=== PATIENT | female | born 1970 | race Caucasian/White ===

== ENCOUNTER 2020-08-01 11:23 | Emergency (ER) | payer OTHER, SELFPAY ==
[2020-08-01] VITALS (7 sets, daily range): BP systolic 99–106; BP diastolic 67–77; PULSE 57–89; RESP 16–43; TEMP 36.2; O2SAT 96–99
--- NOTE | 2020-08-01 11:37 | ED_ITS ---
HPI - General Adult General Chief complaint: Abdominal Pain Stated complaint: shakes/eyes yellow/no balance/swollen abd Time Seen by Provider: 08/01/20 11:36 Source: patient Mode of arrival: Ambulatory Limitations: no limitations History of Present Illness HPI narrative: Patient is a 49-year-old female. Has a history of high blood pressure. Is on atenolol for this. Also has had a fairly significant alcohol history. She states she has been weaning herself off of alcohol for the past several weeks. Her last drink was yesterday where she took ?1 shot ?because she was having shaking. She states that approximately 6 weeks ago when she saw all a new provider she had labs drawn and was told that her liver function tests were elevated. She also was told that her vitamins were low and so a short time afterwards she received an infusion of vitamins. She is unsure as to exactly what was in the infusion. Shortly afterwards she stated that her urine started changing colors. In just a couple days after that started noticing that her eyes and skin were changing a yellow color. She has not had any change in stool habits. Does have some right upper quadrant tenderness. Is afebrile. Has been told that she has had a cyst on her liver. This was on an ultrasound that was [place] many [place]. Related Data Home Medications Medication Instructions Recorded Confirmed atenolol 12.5 mg PO DAILY 08/01/20 08/01/20 Allergies Allergy/AdvReac Type Severity Reaction Status Date / Time lisinopril AdvReac Cough Verified 08/01/20 11:54 Review of Systems Constitutional Constitutional: Denies fever(s) Eyes Comments: Yellow eyes ENT Ears, Nose, Mouth, and Throat: Reports system reviewed and no additional complaints, except as documented Cardiovascular Cardiovascular: Reports system reviewed and no additional complaints, except as documented Respiratory Respiratory: Reports system reviewed and no additional complaints, except as documented Gastrointestinal Gastrointestinal: Reports abdominal pain, Denies nausea and Denies vomiting Genitourinary Comments: Dark colored urine Musculoskeletal Musculoskeletal: Reports system reviewed and no additional complaints, except as documented Integumentary/Breasts Comments: Easy bruising Neurologic Neurologic: Reports system reviewed and no additional complaints, except as documented Psychiatric Psychiatric: Reports system reviewed and no additional complaints, except as documented Hematologic/Lymphatic On Anticoagulants: No Allergic/Immunologic Allergic/Immunologic: Reports system reviewed and no additional complaints, except as documented Patient History Medical History Alcohol abuse Hypertension Social History Smoking Status: Never smoker Exam Initial Vital Signs Initial Vital Signs: Vital Signs Temperature 97.1 F L 08/01/20 11:39 Pulse Rate 84 08/01/20 11:39 Respiratory Rate 17 08/01/20 11:39 Blood Pressure 100/73 08/01/20 11:39 Pulse Oximetry 98 08/01/20 11:39 Const General: cooperative and comfortable Limitations: mental status not altered HENMT Head: normal to inspection and normocephalic Nose: external nose normal Face and sinus: normal facial exam Eyes Sclera: scleral abnormality bilaterally (Jaundice) Pupils: PERRL Resp Effort & Inspection: normal respiratory effort Auscultation: clear to auscultation bilaterally Cardio Rate: regular rate Rhythm: regular rhythm GI Inspection: non-distended Palpation: soft, tender (Right upper quadrant) and No ascites Skin Other: Systemic jaundice and petechiae on lower extremities Neuro General: patient alert, patient awake and patient oriented x3 Cognition: normal cognition Speech: speech normal Extrem General: normal to inspection and capillary refill normal Psych Appearance: disheveled Scores GCS [place] coma scale eye opening: Spontaneous [place] coma scale verbal response: Orientated [place] coma scale motor response: Obey commands [place] coma scale total score: 15 Course Orders Ordered: ED Orders 08/01/20 11:23 Hepatitis Acute Panel Stat 08/01/20 11:41 Acetaminophen Stat Basic Metabolic Panel Stat Complete Blood Count AUTO DIFF Stat Ethanol (ETOH) Stat Hepatic (Liver) Panel Stat Lactate (Lactic Acid) Stat Lipase Stat Partial Thromboplastin Time Stat Prothrombin Time INR Stat 08/01/20 11:49 Ammonia (NH3) Stat 08/01/20 12:09 US abdomen limited Stat 08/01/20 14:05 COVID19 - ADMIT (LEATHER DRIER swab/PCR) Stat 08/01/20 14:43 Urine Drug Screen, Rapid Stat 08/01/20 14:55 Ictotest Urine Stat Urinalysis and Microscopic Stat Urine Culture Stat Vital Signs Vital signs: Vital Signs - 8 hr 08/01/20 11:39 08/01/20 12:15 08/01/20 12:30 Temperature 97.1 F L Pulse Rate 84 89 57 L Respiratory Rate 17 21 43 H Blood Pressure 100/73 Pulse Oximetry 98 99 96 08/01/20 12:31 08/01/20 12:43 08/01/20 14:01 Temperature Pulse Rate 67 66 80 Respiratory Rate 16 18 17 Blood Pressure 99/67 103/71 Pulse Oximetry 98 99 99 08/01/20 15:13 Temperature Pulse Rate 76 Respiratory Rate 17 Blood Pressure 106/77 Pulse Oximetry 99 Medical Decision Making Lab Data Lab results reviewed: Yes I reviewed the patient's lab results. Result diagrams: 08/01/20 11:41 08/01/20 11:41 Labs: Lab Results 08/01/20 08/01/20 08/01/20 Range/Units 11:41 11:41 11:41 WBC 5.7 (4.5-11.0) X10^3/uL RBC 3.45 L (4.0-5.2) X10^6/uL Hgb 13.8 (12.0-16.0) g/dL Hct 40.3 (36-46) % MCV 116.8 H (80-100) fL MCH 40.1 H (26-34) PG MCHC 34.3 (30-36) % RDW 18.1 H (11.6-14.8) % Plt Count 459 H (150-400) X10^3/uL Neut % (Auto) Not Reportable Lymph % (Auto) Not Reportable [place] % (Auto) Not Reportable Eos % (Auto) Not Reportable Baso % (Auto) Not Reportable Lymph # (Auto) Not Reportable [place] # (Auto) Not Reportable Baso # (Auto) Not Reportable Total Counted 100 Seg Neutrophils % 61.0 (38-70) % Band Neutrophils % 7.0 (3-7) % Lymphocytes % (Manual) 19.0 L (25-45) % Atypical Lymphs % 5.0 H ( - 0) % Monocytes % (Manual) 5.0 (2-11) % Eosinophils % (Manual) 3.0 (2-4) % Neutrophils # (Manual) 3876 (8984-8580) /uL RBC Morphology See below Polychromasia 1+ H Macrocytosis 1+ H Stomatocytes 2+ H PT 16.2 H (10.1-12.7) SECONDS INR 1.4 H (0.9-1.3) APTT 29 (26.4-36.2) SECONDS Sodium 138 (137-145) mmol/L Potassium 3.1 L (3.4-5.1) mmol/L Chloride 102 (98-107) mmol/L Carbon Dioxide 25 (22-32) mmol/L BUN 7 (7-17) mg/dL Creatinine 0.53 (0.52-1.04) mg/dL Estimated GFR > 60.0 (>60) mL/min BUN/Creatinine Ratio 13.2 (6-22) Glucose 101 H (70-100) mg/dL Lactate (0.7-2.1) mmol/L Calcium 9.1 (8.4-10.2) mg/dL Total Bilirubin 13.8 H (0.2-1.3) mg/dL Conjugated Bilirubin 6.0 H (0.0-0.3) md/dL Unconjugated Bilirubin 1.8 H (0.0-1.1) mg/dL AST 290 H (14-36) IU/L ALT 91 H (<35) IU/L Alkaline Phosphatase 181 H (38-126) U/L Ammonia (9-30) umol/L Total Protein 7.6 (6.3-8.2) g/dL Albumin 3.6 (3.5-5.0) g/dL Globulin 4.0 (1.7-4.1) g/dL Albumin/Globulin Ratio 0.9 L (1.0-2.8) Lipase 591 H (23-300) U/L Urine Color Urine Appearance Urine pH (4.5-8.0) Ur Specific [place] (1.000-1.035) Urine Protein (Negative) Urine Glucose (UA) (Negative) g/dL Urine Ketones (NEGATIVE) Urine Occult Blood (Negative) Urine Nitrate (Negative) Urine Bilirubin (NEGATIVE) Ur Bilirubin Confirm (Negative) Urine Urobilinogen (0.2) E.U./dL Ur Leukocyte Esterase (NEGATIVE) Urine RBC (0-5/HPF) Urine WBC (0-5/HPF) Ur Squamous Epith Cells (0-5/HPF) Ur Transition Epith Cell (0-5/HPF) Urine Bacteria (None) Hyaline Casts (None) Urine Mucus (Negative) Ur Culture Indicated? U Opiates 300ng/mL cut (Negative) Ur Oxycodone Screen (Negative) Urine Methadone Screen (Negative) Acetaminophen < 10 L (10-30) ug/mL Ur Barbiturates Screen (Negative) U Tricyclic Antidepress (Negative) Ur Phencyclidine Scrn (Negative) Ur Amphetamines Screen (Negative) U Methamphetamines Scrn (Negative) Ur MDMA Scrn (Ecstasy) (Negative) U Benzodiazepines Scrn (Negative) Urine Cocaine Screen (Negative) U Marijuana (THC) Screen (Negative) Ethyl Alcohol < 10 ( - 10) mg/dL SARS-CoV-2 (PCR) (Negative) 08/01/20 08/01/20 08/01/20 Range/Units 11:41 11:49 14:05 WBC (4.5-11.0) X10^3/uL RBC (4.0-5.2) X10^6/uL Hgb (12.0-16.0) g/dL Hct (36-46) % MCV (80-100) fL MCH (26-34) PG MCHC (30-36) % RDW (11.6-14.8) % Plt Count (150-400) X10^3/uL Neut % (Auto) Lymph % (Auto) [place] % (Auto) Eos % (Auto) Baso % (Auto) Lymph # (Auto) [place] # (Auto) Baso # (Auto) Total Counted Seg Neutrophils % (38-70) % Band Neutrophils % (3-7) % Lymphocytes % (Manual) (25-45) % Atypical Lymphs % ( - 0) % Monocytes % (Manual) (2-11) % Eosinophils % (Manual) (2-4) % Neutrophils # (Manual) (2528-6821) /uL RBC Morphology Polychromasia Macrocytosis Stomatocytes PT (10.1-12.7) SECONDS INR (0.9-1.3) APTT (26.4-36.2) SECONDS Sodium (137-145) mmol/L Potassium (3.4-5.1) mmol/L Chloride (98-107) mmol/L Carbon Dioxide (22-32) mmol/L BUN (7-17) mg/dL Creatinine (0.52-1.04) mg/dL Estimated GFR (>60) mL/min BUN/Creatinine Ratio (6-22) Glucose (70-100) mg/dL Lactate 1.7 (0.7-2.1) mmol/L Calcium (8.4-10.2) mg/dL Total Bilirubin (0.2-1.3) mg/dL Conjugated Bilirubin (0.0-0.3) md/dL Unconjugated Bilirubin (0.0-1.1) mg/dL AST (14-36) IU/L ALT (<35) IU/L Alkaline Phosphatase (38-126) U/L Ammonia < 9 L (9-30) umol/L Total Protein (6.3-8.2) g/dL Albumin (3.5-5.0) g/dL Globulin (1.7-4.1) g/dL Albumin/Globulin Ratio (1.0-2.8) Lipase (23-300) U/L Urine Color Urine Appearance Urine pH (4.5-8.0) Ur Specific [place] (1.000-1.035) Urine Protein (Negative) Urine Glucose (UA) (Negative) g/dL Urine Ketones (NEGATIVE) Urine Occult Blood (Negative) Urine Nitrate (Negative) Urine Bilirubin (NEGATIVE) Ur Bilirubin Confirm (Negative) Urine Urobilinogen (0.2) E.U./dL Ur Leukocyte Esterase (NEGATIVE) Urine RBC (0-5/HPF) Urine WBC (0-5/HPF) Ur Squamous Epith Cells (0-5/HPF) Ur Transition Epith Cell (0-5/HPF) Urine Bacteria (None) Hyaline Casts (None) Urine Mucus (Negative) Ur Culture Indicated? U Opiates 300ng/mL cut (Negative) Ur Oxycodone Screen (Negative) Urine Methadone Screen (Negative) Acetaminophen (10-30) ug/mL Ur Barbiturates Screen (Negative) U Tricyclic Antidepress (Negative) Ur Phencyclidine Scrn (Negative) Ur Amphetamines Screen (Negative) U Methamphetamines Scrn (Negative) Ur MDMA Scrn (Ecstasy) (Negative) U Benzodiazepines Scrn (Negative) Urine Cocaine Screen (Negative) U Marijuana (THC) Screen (Negative) Ethyl Alcohol ( - 10) mg/dL SARS-CoV-2 (PCR) Negative (Negative) 08/01/20 08/01/20 Range/Units 14:43 14:55 WBC (4.5-11.0) X10^3/uL RBC (4.0-5.2) X10^6/uL Hgb (12.0-16.0) g/dL Hct (36-46) % MCV (80-100) fL MCH (26-34) PG MCHC (30-36) % RDW (11.6-14.8) % Plt Count (150-400) X10^3/uL Neut % (Auto) Lymph % (Auto) [place] % (Auto) Eos % (Auto) Baso % (Auto) Lymph # (Auto) [place] # (Auto) Baso # (Auto) Total Counted Seg Neutrophils % (38-70) % Band Neutrophils % (3-7) % Lymphocytes % (Manual) (25-45) % Atypical Lymphs % ( - 0) % Monocytes % (Manual) (2-11) % Eosinophils % (Manual) (2-4) % Neutrophils # (Manual) (2750-1706) /uL RBC Morphology Polychromasia Macrocytosis Stomatocytes PT (10.1-12.7) SECONDS INR (0.9-1.3) APTT (26.4-36.2) SECONDS Sodium (137-145) mmol/L Potassium (3.4-5.1) mmol/L Chloride (98-107) mmol/L Carbon Dioxide (22-32) mmol/L BUN (7-17) mg/dL Creatinine (0.52-1.04) mg/dL Estimated GFR (>60) mL/min BUN/Creatinine Ratio (6-22) Glucose (70-100) mg/dL Lactate (0.7-2.1) mmol/L Calcium (8.4-10.2) mg/dL Total Bilirubin (0.2-1.3) mg/dL Conjugated Bilirubin (0.0-0.3) md/dL Unconjugated Bilirubin (0.0-1.1) mg/dL AST (14-36) IU/L ALT (<35) IU/L Alkaline Phosphatase (38-126) U/L Ammonia (9-30) umol/L Total Protein (6.3-8.2) g/dL Albumin (3.5-5.0) g/dL Globulin (1.7-4.1) g/dL Albumin/Globulin Ratio (1.0-2.8) Lipase (23-300) U/L Urine Color Brown Urine Appearance Cloudy Urine pH 6.5 (4.5-8.0) Ur Specific [place] 1.025 (1.000-1.035) Urine Protein 2+ H (Negative) Urine Glucose (UA) Trace H (Negative) g/dL Urine Ketones Trace H (NEGATIVE) Urine Occult Blood Trace-lysed (Negative) Urine Nitrate Positive H (Negative) Urine Bilirubin 3+ H (NEGATIVE) Ur Bilirubin Confirm Positive H (Negative) Urine Urobilinogen 2.0 H (0.2) E.U./dL Ur Leukocyte Esterase Trace H (NEGATIVE) Urine RBC 0-1/hpf (0-5/HPF) Urine WBC 5-10/hpf H (0-5/HPF) Ur Squamous Epith Cells 1-5 /hpf (0-5/HPF) Ur Transition Epith Cell 5-10/hpf H (0-5/HPF) Urine Bacteria Few (2-10) H (None) Hyaline Casts 5-10/lpf (None) Urine Mucus 2+ H (Negative) Ur Culture Indicated? Specimen cultured U Opiates 300ng/mL cut Negative (Negative) Ur Oxycodone Screen Negative (Negative) Urine Methadone Screen Negative (Negative) Acetaminophen (10-30) ug/mL Ur Barbiturates Screen Negative (Negative) U Tricyclic Antidepress Positive H (Negative) Ur Phencyclidine Scrn Negative (Negative) Ur Amphetamines Screen Negative (Negative) U Methamphetamines Scrn Negative (Negative) Ur MDMA Scrn (Ecstasy) Negative (Negative) U Benzodiazepines Scrn Negative (Negative) Urine Cocaine Screen Negative (Negative) U Marijuana (THC) Screen Negative (Negative) Ethyl Alcohol ( - 10) mg/dL SARS-CoV-2 (PCR) (Negative) Imaging Data US - abdomen: Radiologist's Impression: [address] [id number] ReportSigned Patient: Madison Torres LMR#: [id number]: [id number]:[id number]/Sex: 49 / FDate of Service: 08/01/20Loc: EDAccession Number: [id number] Procedure: US abdomen limited Ordering Provider: Jamarcus Villegas D.O. PROCEDURE: US ABDOMEN LIMITED INDICATIONS: LIVER FAILURE TECHNIQUE: Real-time scanning was performed of the abdominal and retroperitoneal organs, with image documentation. COMPARISON: None. FINDINGS: Liver: The liver demonstrates diffusely increased echotexture without focal abnormalities consistent with chronic hepatocellular disease/hepatic steatosis. Liver appears enlarged with the lateral segment of the left hepatic lobe extending into the left upper quadrant. Multiple anechoic liver cysts are seen. Largest on the left measures 0.6 x 0.6 x 0.5 cm. Largest on the right measures 1.0 x 1.1 x 1.2 cm. The right hepatic lobe also appears prominent in size. Gallbladder: Hydropic gallbladder without wall thickening gallstones or pericholecystic fluid. Gallbladder measures 14.1 x 6.8 x 4.9 cm. Biliary ducts: Intrahepatic bile ducts are non-dilated. Extrahepatic bile duct caliber is not well visualized. Pancreas: Pancreas is not well visualized. Miscellaneous: No free abdominal fluid. IMPRESSION: 1. Hydropic gallbladder without wall thickening or gallstones. 2. Hepatomegaly with findings compatible with hepatic steatosis. 3. Multiple bilateral hepatic cysts. Dictated by: David Lynn M.D. on 08/01/2020 at 13:05 Approved by: David Lynn M.D. on 08/01/2020 at 13:18 MDM Narrative Medical decision making narrative: Patient was alert oriented x3. Did not have any indication of alcohol withdrawal. Has had 2 weeks of presenting symptoms. Overall she states she does feel well however is having some lower extremity weakness. Has an elevated bilirubin and elevated LFTs. This is most likely related to her alcohol intake. Right upper quadrant ultrasound is consistent wi th this. I have low suspicion for gallbladder etiology. She has not had pancreatitis. Her hepatitis panel was pending at the time of discharge. I discussed the case with Internal Medicine at [facility] who stated that she did not think that the patient would require a GI referral and that this most likely is a alcoholic hepatitis. I did discuss the case with Dr. Worthy with Internal Medicine at our facility who stated that since the patient feels well and her vital signs were unremarkable in that she does have a primary doctor that the patient could be discharged home with follow-up with her primary doctor with referral to see Gastroenterology. She was given the phone number f or a GI provider. She was given strict return precautions. Both her and her expressed understanding agreement. We did discuss her alcohol use in the portions of quitting and the concern for alcohol withdrawal. Discharge Plan Departure Patient Disposition: Home Clinical Impression: Alcoholic hepatitis, Hyperbilirubinemia, Jaundice Instructions: Alcoholic Hepatitis (Alternative Therapy) Activity Restrictions/Additional Instructions: Like we discussed you do need to avoid alcohol. I recommend that you contact your primary doctor as you will need to see a liver specialist. You can contact the number below of the GI specialist that is affiliated with this hospital. Return to the emergency department for any new or worsening symptoms Prescriptions: No Action atenolol 25 mg Tablet 12.5 mg PO DAILY RF: 0 Referrals: Frank Padilla MD [Primary Care Provider] - Davis Nixon MD [Physician] -
[2020-08-01 11:52] LABS: Hematocrit 40.3 % (36-46); Hemoglobin 13.8 g/dL (12.0-16.0); Mean Corpuscular HGB Conc 34.3 % (30-36); Mean Corpuscular Hemoglobin 40.1 PG (26-34); Mean Corpuscular Volume 116.8 fL (80-100); Platelet Count 459 X10^3/uL (150-400); Red Blood Cell Count 3.45 X10^6/uL (4.0-5.2); Red Cell Distribution Width 18.1 % (11.6-14.8); White Blood Cell Count 5.7 X10^3/uL (4.5-11.0)
[2020-08-01 11:53] LABS: Add Manual Diff / Slide Review YES
[2020-08-01 11:55] LABS: INR 1.4 (0.9-1.3); Prothrombin Time 16.2 SECONDS (10.1-12.7)
[2020-08-01 11:58] LABS: Lactate (Lactic Acid) 1.7 mmol/L (0.7-2.1); PTT Partial Thromboplastin Tim 29 SECONDS (26.4-36.2)
[2020-08-01 12:00] LABS: Acetaminophen < 10 ug/mL (10-30); Alanine Aminotransferase 91 IU/L (<35); Albumin 3.6 g/dL (3.5-5.0); Albumin Globulin Ratio 0.9 (1.0-2.8); Alkaline Phosphatase 181 U/L (38-126); Aspartate Aminotransferase 290 IU/L (14-36); BUN Creatinine Ratio 13.2 (6-22); Bilirubin Total 13.8 mg/dL (0.2-1.3); Bilirubin Unconjugated 1.8 mg/dL (0.0-1.1); Blood Urea Nitrogen 7 mg/dL (7-17); Calcium 9.1 mg/dL (8.4-10.2); Carbon Dioxide 25 mmol/L (22-32); Chloride 102 mmol/L (98-107); Estimated Glomerular Filt Rate > 60.0 mL/min (>60); Ethanol (ETOH) < 10 mg/dL; Glucose 101 mg/dL (70-100); HEMOLYSIS < 15 (0-50); Lipase 591 U/L (23-300); Potassium 3.1 mmol/L (3.4-5.1); Sodium 138 mmol/L (137-145); Total Protein 7.6 g/dL (6.3-8.2)
[2020-08-01 12:06] LABS: Ammonia (NH3) < 9 umol/L (9-30)
--- NOTE | 2020-08-01 12:09 | DI.US.S_ITS ---
PROCEDURE: US ABDOMEN LIMITED INDICATIONS: LIVER FAILURE TECHNIQUE: Real-time scanning was performed of the abdominal and retroperitoneal organs, with image documentation. COMPARISON: None. FINDINGS: Liver: The liver demonstrates diffusely increased echotexture without focal abnormalities consistent with chronic hepatocellular disease/hepatic steatosis. Liver appears enlarged with the lateral segment of the left hepatic lobe extending into the left upper quadrant. Multiple anechoic liver cysts are seen. Largest on the left measures 0.6 x 0.6 x 0.5 cm. Largest on the right measures 1.0 x 1.1 x 1.2 cm. The right hepatic lobe also appears prominent in size. Gallbladder: Hydropic gallbladder without wall thickening gallstones or pericholecystic fluid. Gallbladder measures 14.1 x 6.8 x 4.9 cm. Biliary ducts: Intrahepatic bile ducts are non-dilated. Extrahepatic bile duct caliber is not well visualized. Pancreas: Pancreas is not well visualized. Miscellaneous: No free abdominal fluid. IMPRESSION: 1. Hydropic gallbladder without wall thickening or gallstones. 2. Hepatomegaly with findings compatible with hepatic steatosis. 3. Multiple bilateral hepatic cysts. Dictated by: David Lynn M.D. on 08/01/2020 at 13:05 Approved by: David Lynn M.D. on 08/01/2020 at 13:18
[2020-08-01 12:27] LABS: Neutrophils Absolute Manual 3876 /uL (3000-5900); Total Cells Counted 100
[2020-08-01 12:29] LABS: Macrocytosis 1+; Polychromasia 1+; Stomatocytes 2+
[2020-08-01 14:47] LABS: Ur Creatinine Normal (Normal); Ur Specific Gravity Normal (Normal); Urine pH Normal (Normal)
[2020-08-01 14:48] LABS: UR Morphine/Opiate cutoff 300 Negative (Negative); Urine Amphetamines Negative (Negative); Urine Barbiturates Negative (Negative); Urine Benzodiazepines Negative (Negative); Urine Cocaine Negative (Negative); Urine MDMA Negative (Negative); Urine Methadone Negative (Negative); Urine Methamphetamines Negative (Negative); Urine Oxycodone Negative (Negative); Urine Phencyclidine Negative (Negative); Urine Tetrahydrocannabinol Negative (Negative); Urine Tricyclic Antidepressant Positive (Negative)
[2020-08-01 15:00] LABS: Appearance Urine UA CLOUDY; Bilirubin Urine UA 3+ (NEGATIVE); Color Urine UA BROWN; Leukocyte Esterase Urine UA TRACE (NEGATIVE); Occult Blood Urine UA TRACE-LYSED (Negative); Specific Gravity Urine UA 1.025 (1.000-1.035)
[2020-08-01 15:01] LABS: Glucose Urine UA TRACE g/dL (Negative); pH Urine UA 6.5 (4.5-8.0)
[2020-08-01 15:02] LABS: Ketones Urine UA TRACE (NEGATIVE); Nitrite Urine UA POSITIVE (Negative); Protein Urine UA 2+ (Negative)
[2020-08-01 15:04] LABS: COVID19 - ADMIT (NP swab/PCR) Negative (Negative)
[2020-08-01 15:07] LABS: Bacteria Urine Few (2-10); Culture Indicated Urine Specimen Cultured; Hyaline Casts Urine 5-10/LPF; Ictotest Urine Positive (Negative); Mucus Urine 2+ (Negative); RBC Urine 0-1/HPF (0-5/HPF); Squamous Epithelial Cell Urine 1-5 /HPF (0-5/HPF); Transitional Epi Cells Urine 5-10/HPF (0-5/HPF); WBC Urine 5-10/HPF (0-5/HPF)
[2020-08-02 10:19] LABS: HBsAg Screen Negative (Negative); Hepatitis A Antibody IgM Negative (Negative); Hepatitis B Core Antibody IgM Negative (Negative); Hepatitis C Antibody <0.1 s/co ratio (0.0-0.9)
== END 2020-08-01 15:15 | disposition home or self-care (01) ==
PROVIDERS: Emergency Provider Emergency Medicine; PCP Internal Medicine
DX: K70.10 Alcoholic hepatitis without ascites (principal); E80.6 Other disorders of bilirubin metabolism; Z20.822 Contact with and (suspected) exposure to COVID-19
CPT/HCPCS: 36415; 76705; 80048; 80074; 80076; 80305; 80320; 80329; 81001; 82140; 83605; 83690; 85007; 85025; 85610; 85730; 87077; 87086; 87186; 87635; 99284; C9803; G0480